=== PATIENT | male | born 1950 | race Caucasian/White ===

== ENCOUNTER 2016-08-01 09:57 | Emergency (ER) | payer MEDICARE ==
[~2016-08-01] VITALS: Ht 182.9 cm; Wt 102.3 kg
[~2016-08-01 09:57] MED LIST: CEFTR2P2 IV
[2016-08-01 09:59] VITALS: BP 180/87; PULSE 85; RESP 14; TEMP 98.4; O2SAT 94
[2016-08-01] MEDS ORDERED: CEPH-460 PO (10:47)
[2016-08-01] MEDS ORDERED: BACT800T5 PO (10:47)
--- NOTE | 2016-08-01 10:49 | PD ---
HPI Chief Complaint: Skin Problem Time Seen by Provider: 10:46 Travel History International Travel<30 days: No Contact w/Intl Traveler<30days: No Traveled to known affect area: No History of Present Illness HPI 65-year-old male presents to the emergency Department with complaint of a wound to his nose 3 weeks. He said it's been getting bigger. He reports having the same wound to the same spot act during the holidays and it "dried up" after time. He says the area is not painful, but it is a little tender. He says it has drained some purulent drainage. Denies fever or vomiting. Has not taken any medications or tried any treatments to alleviate his symptoms. No known allergies. Has no other medical complaints. History of diabetes that is diet controlled. Up-to-date on tetanus vaccination. Does not have an established primary care provider. No other modifying factors or associated signs and symptoms. PFSH Past Medical History Blood Disorders: No Cancer: No Cardiovascular Problems: No Diabetes: Yes Patient Takes Glucophage: No (NO MEDS ) Diminished Hearing: No Endocrine: Yes (new onset diabetes) Gastrointestinal Disorders: No Genitourinary: No Immune Disorder: No Implanted Vascular Access Dvce: No Musculoskeletal: Yes (OSTEOMYELITIS ) Neurologic: No Psychiatric: No Reproductive: No Respiratory: No Immunizations Current: Yes Tetanus Vaccination: < 5 Years Influenza Vaccination: No Past Surgical History Abdominal Surgery: No Cardiac Surgery: No Ear Surgery: No Endocrine Surgery: No Eye Surgery: No Genitourinary Surgery: No Gynecologic Surgery: No Oral Surgery: No Thoracic Surgery: No Other Surgery: No Social History Alcohol Use: Yes (occ) Tobacco Use: Yes (1 PPD) Substance Use: Yes (MARIJUANA) Allergies-Medications (Allergen,Severity, Reaction): Coded Allergies: No Known Allergies (Verified , 08/01/16) Reported Meds & Prescriptions Reported Meds & Active Scripts Active Keflex (Cephalexin) 500 Mg Cap 500 Mg PO Q6H 10 Days Bactrim DS (Sulfamethoxazole-Trimethoprim) 800-160 Mg Tab 1 Tab PO BID 10 Days Review of Systems Except as stated in HPI: all other systems reviewed are Neg Physical Exam Narrative GENERAL: Well-nourished, well-developed male patient, in no acute distress; afebrile, nontoxic-appearing. SKIN: Warm and dry. Approximately 1 cm in diameter open lesion with flesh- colored, rounded borders to the tip of the right nose; without surrounding erythema; without drainage. HEAD: Atraumatic. Normocephalic. EYES: Pupils equal and round. No scleral icterus. No injection or drainage. ENT: Mucosa pink and moist. Airway patent. NECK: Trachea midline. CARDIOVASCULAR: Regular rate. RESPIRATORY: No accessory muscle use. GASTROINTESTINAL: Rounded. MUSCULOSKELETAL: No obvious deformities. No clubbing. No cyanosis. No edema. NEUROLOGICAL: Awake and alert. Oriented 3. No obvious cranial nerve deficits. Motor grossly within normal limits. Normal speech. PSYCHIATRIC: Appropriate mood and affect; insight and judgment normal. Data Data Last Documented VS Vital Signs Date Time Temp Pulse Resp B/P Pulse Ox O2 Delivery O2 Flow Rate FiO2 08/01/16 09:59 98.4 85 14 180/87 94 Orders Wound Culture And Gram Stain (08/01/16 10:49) [facility] Medical Decision Making Medical Screen Exam Complete: Yes Emergency Medical Condition: Yes Medical Record Reviewed: Yes Differential Diagnosis Basal cell carcinoma, skin abscess, skin cancer, nonspecific lesion Narrative Course 65-year-old male with a lesion to the tip of the right nose that measures approximately 1 cm in diameter. The lesion does not seem to be consistent with an abscess and does not appear to have signs of infection, but I will prescribe antibiotics for home. Wound culture pending. Patient up-to-date on tetanus vaccination. Instructed patient to follow up with bar host/hostess. Clindamycin prescribed for home. Patient verbalizes understanding and agreement with treatment plan. Patient is medically cleared and stable for discharge. Discussed reasons to return to the emergency department. Instructed patient to follow up with primary care provider. Patient agrees with treatment plan. The patients vital signs are stable and the patient is stable for outpatient follow- up and treatment. Patient discharged home, stable and in no acute distress. Diagnosis Primary Impression: Non-healing skin lesion of nose Referrals: Trouble Clerk Primary Care Physician Patient Instructions: Abscess (ED), Acute Wound Care (ED), General Instructions Additional Instructions: Antibiotics as prescribed Ibuprofen or Tylenol as directed and as needed for pain and inflammation Keep area clean and dry Follow-up with dermatology, within one week Follow-up with primary care provider, 3 days Return to the emergency department immediately with worsening of symptoms Med/Other Pt SpecificInfo: Prescription(s) given Scripts Cephalexin (Keflex)500 Mg Qnb007 Mg PO Q6H 10 Days Ref 0 Prov:Irene Chaney 08/01/16 Sulfamethoxazole-Trimethoprim (Bactrim DS)800-160 Mg Tab1 Tab PO BID 10 Days Ref 0 Prov:Irene Chaney 08/01/16 Disposition: 01 DISCHARGE HOME Condition: Stable Irene Chaney Aug 01, 2016 10:49
== END 2016-08-01 11:05 | disposition home or self-care (01) ==
LOC: NEPK 09:57
DX: J34.89 Other specified disorders of nose and nasal sinuses (principal); E11.9 Type 2 diabetes mellitus without complications; M86.9 Osteomyelitis, unspecified; F17.200 Nicotine dependence, unspecified, uncomplicated; Z79.899 Other long term (current) drug therapy
CPT/HCPCS: 86403; 87070; 87205; 99284

== ENCOUNTER → 2016-11-12 | Day surgery (SDC) | payer MEDICARE ==
[~2016-11-12] MED LIST changes: +ACETAMINOPHEN 1000 MG/100 ML 100 ML IV ONE; +ARTIFICIAL TEARS OPTH OINT 3.5 APPLIC/3.5 GM TUBO ONE; +BACT800T5 PO; +BUPIVACAINE/EPINEPHRINE 0.25% 50 ML VIAL ONE; -CEFTR2P2 IV; +CEPH-460 PO; +LACTATED RINGER'S 1000 ML INJ 1,000 ML ONE; +LIDOCAINE 1%/EPINEPHrine 1:100,000 SOLN 30 ML VIAL INFIL ONE; +LIDOCAINE 2%/EPINEPHrine PF 1:200,000 20ML SDV ONE; +MIDAZOLAM HCL 2 MG/2 ML VIAL ONE; +NEOMYCIN/POLYMYXIN/BACITRACIN OINT 15 GM TUBE ONE; +ONDANSETRON HCL 4 MG/2 ML VIAL IV PUSH ONE; +PROPOFOL 200 MG/20 ML AMP IV ONE; +SODIUM CHLORIDE 0.9% INJ 10 ML ONE; +ceFAZolin INJ 1,000 MG VIAL ONE
--- NOTE | 2016-11-12 10:19 | TN ---
cc: AMOL DEL VALLE M.D. DATE OF SURGERY: 11/12/2016 PREOPERATIVE DIAGNOSIS Basal cell carcinoma, right nasal distal nose. POSTOPERATIVE DIAGNOSIS Basal cell carcinoma, right nasal distal nose. PROCEDURE Wide local excision with frozen section for a primary defect of 2.5 cm in diameter. This required a nasolabial fold fasciocutaneous flap with second defect of 3.5 x 8 cm. He also required a cartilaginous graft of 3 x 0.5 cm. SURGEON Amol Del Valle MD, FACS. ANESTHESIA LMA general plus a total of 20 cc of 1% lidocaine with epinephrine. ESTIMATED BLOOD LOSS Minimal. COMPLICATIONS None. DETAILS OF PROCEDURE He was properly consented, marked and properly anesthetized. The skin lesion was located on the right nasal tip. It was properly surrounded. Sterilization was done with Microcyn and sterile draping applied. The donor site was the right ear jose luis. Excision was carried out of this lesion including 0.2 to 0.3 cm margins leaving a 2.5 cm diameter. Frozen section failed to demonstrate any further pathology. The nasolabial fold was elevated due to the size of this lesion and trimmed to fit. This was properly inset utilizing a combination of 3-0 Monocryl suture, 5-0 Monocryl suture and 5-0 fast-absorbing gut. Before rotating the flap a strip of conchal cartilage was harvested from the right ear jose luis through a posterior approach for a length of 3.5 cm x 0.5 cm. This was properly trimmed and inset into the rim of the right nasal ala and secured utilizing 5-0 Monocryl suture internally. The flap totaling 30.5 cm was rotated , trimmed to fit and sutured utilizing 5-0 Monocryl suture and 5-0 fast-absorbing gut. Overall the patient tolerated the procedure well. Good viability of tissue was noted at the end of the case. The donor site and the posterior ear was closed utilizing 3-0 Monocryl suture and a running locking 3-0 Prolene suture. The patient tolerated the procedure well. MD KYLEE Robertson/SEAN /9:57 AM /10:12 AM ENRIQUE
== END | disposition home or self-care (01) ==
LOC: ESDC 07:16
PROVIDERS: ATTEND Plastic Surgery
DX: C44.311 Basal cell carcinoma of skin of nose (principal)
CPT/HCPCS: 00160; 00300; 11643; 15732; 21235; 88305; 88331; J0131; J0690; J2250; J2405; J3010; J7120